=== PATIENT | male | born 1945 | race Caucasian/White ===

== ENCOUNTER 2018-05-13 13:31 | Emergency (ER) | payer MEDICARE ==
[~2018-05-13] VITALS: Ht 167.6 cm; Wt 88.5 kg
[2018-05-13] MEDS ORDERED: GABA600 PO (13:43)
[2018-05-13] MEDS ORDERED: HEARTBURN RELI150 M1 PO (13:43)
[2018-05-13] MEDS ORDERED: AMIT50 PO (13:43)
[2018-05-13] MEDS ORDERED: PARO30 PO (13:43)
[2018-05-13] MEDS ORDERED: LEVSOD125 PO (13:43)
== END 2018-05-13 15:12 | disposition home or self-care (01) ==
LOC: ER 13:31
DX: S00.11XA Contusion of right eyelid and periocular area, initial encounter (principal); E03.9 Hypothyroidism, unspecified; K21.9 Gastro-esophageal reflux disease without esophagitis; Z79.899 Other long term (current) drug therapy; W22.8XXA Striking against or struck by other objects, initial encounter
CPT/HCPCS: 70486; 99283-25